=== PATIENT | male | born 1955 | race African-American/Black ===

== ENCOUNTER 2024-08-19 07:58 | Outpatient (CLI) | payer OTHER, SELFPAY ==
--- NOTE | 2024-08-19 08:00 | ECG_ITS ---
Test Date: 2024-08-19 08:29:04 Measurements Intervals [place] Rate: 67 P: 62 CA: 146 QRS: 52 QRSD: 89 T: 38 QT: 352 QTc: 374 Interpretive Statements SINUS RHYTHM VOLTAGE CRITERIA FOR LVH BORDERLINE T WAVE ABNORMALITY- INFERIOR LEADS BASELINE ARTIFACT- I, II, III, AVR, AVL, AVF, V1-V6 BORDERLINE ECG No previous ECG available for comparison Electronically Signed On 08-19-2024 08:55:58 CDT by Trevin Bell D.O.
[2024-08-19 08:58] LABS: Anion Gap 10 mmol/L (4-12); Blood Urea Nitrogen 15 mg/dL (9-20); Calcium 9.1 mg/dL (8.4-10.2); Carbon Dioxide 22 mmol/L (22-30); Chloride 108 mmol/L (98-107); Estimated Glomerular Filt Rate > 60; Glucose 128 mg/dL (65-110); Potassium 4.3 mmol/L (3.4-5.0); Sodium 140 mmol/L (137-145)
[2024-08-19 13:04] LABS: Hemoglobin A1C. 7.9 % (<5.7)
== END 2024-08-19 07:59 | disposition home or self-care (01) ==
LOC: ANHSURGERY 08:04
PROVIDERS: Anesthesiology; PCP Internal Medicine; Visit Provider Urology
DX: Z01.818 Encounter for other preprocedural examination (principal); N39.3 Stress incontinence (female) (male); E11.9 Type 2 diabetes mellitus without complications; I10 Essential (primary) hypertension
CPT/HCPCS: 36415; 80048; 83036; 87086; 93005

== ENCOUNTER 2024-08-24 00:06 | Day surgery (SDC) | payer OTHER, SELFPAY ==
[2024-08-16 11:02] VITALS: BMI 22.1
--- NOTE | 2024-08-16 11:27 | PC.NURSE ---
Report to the Outpatient Waiting Room, entrance under the green pavilion located off [facility], at time ___9:30AM____ on date ___08/24/24____. Planned Procedure Time: ___11:30AM .? Time changes happen often and if your time is changed the preop area will call you the afternoon before. - You and your visitor will be asked to self-screen and do not enter if you have any COVID symptoms. Please call surgeon if you need to reschedule. - A mask is optional within the hospital at this time. Patients may have clear liquids (water, carbonated beverages, clear teas, apple juice) until 3 hours prior to surgery (8:30AM) with a maximum of 20 ounces. - No food from midnight until time of surgery and no smoking, or chewing tobacco (or any form of nicotine). No chewing gum, candy or mints. or sippy cup to assist with drinking. Juice, water, soda, and popsicles are readily available.? For infants on formula, please bring formula the day of surgery.? Pacifiers are allowed. Take only the following medications with a SIP of water on the morning of surgery: AMLODIPINE & METOPROLOL DO NOT STOP ANY OF YOUR OTHER PRESCRIPTION MEDICATIONS PRIOR TO SURGERY EXCEPT THE FOLLOWING Hold all vitamins and supplements for 3 days per anesthesiologist. Medications to discontinue per physician HOLD ASPIRIN 7 DAYS PRE-OP PER DR CRISTINA Date to take last dose 08/16/24 Please no make-up, nail occitan, hairspray, perfume, deodorant, or body powder the day of surgery.? No jewelry (including any body piercings) or valuables the day of surgery, leave them at home.? Please take a shower or bath the night before, or the morning of, surgery with an antibacterial soap.? Wear comfortable, loose fitting clothing.? - Jewelry must be removed prior to entering the operating room.? Rings and piercings that are not removed may be cut off. - The hospital will not accept responsibility for valuables.? - Please leave all valuables, including medications, at home the day of surgery. If you are going home after surgery, a licensed route delivery service driver must drive you home.? - NO public transportation without another adult if you receive anesthesia. - We recommend that an adult stay with you for 24 hours following discharge. - We also recommend that you do not drive, make important decision, drink alcoholic beverages, or take any drugs that were not prescribed by your health care provider for at least 24 hours after your discharge time. Follow any additional instructions given to you from your surgeon. FOLLOW SURGICAL PREOPERATIVE INSTRUCTIONS AND ORAL ANTIBIOTICS PER DR CRISTINA CALL OFFICE WITH QUESTIONS* Telephone instructions given to ____PATIENT and asked if any additional questions and then verbalized understanding. Patient advised to call surgeon office or pre surgery nurse liaison [phone] if any additional questions.
[2024-08-24] VITALS (13 sets, daily range): BP systolic 165–193; BP diastolic 81–99; PULSE 60–80; RESP 11–18; TEMP 35.8–36.8; O2SAT 98–100; BMI 22.0
--- OUTSIDE RECORDS SUMMARY | 2024-08-24 00:09 | XMS_ITS | Encounter Summary ---
Author Organization [facility] Address [address] [place] [address] Care Team Providers Care Biochemistry Specialist Name Role Phone Yazan Chaves MD Primary Care Provider [phone] Encounter Details Date Type Department Care Team (Late st Contact Info) Description 03/08/1999 Outpatient Historical [facility] Medicine [facility] [address] [facility] 100 [place] [address] Yazan Chaves MD [address] [place] [address] [address] [place] [address] Social History Tobacco Use Types Packs/Day Years Used Date Smoking Tobacco: Never Assessed Sex and Gender Information Value Date Recorded Sex Assigned at Not on file Legal 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
--- OUTSIDE RECORDS SUMMARY | 2024-08-24 00:09 | XMS_ITS | Encounter Summary ---
Author Organization [facility] Address [address] [place] [address] Care Team Providers Care Job Developer For Deaf Adults Name Role Phone Yazan Chaves MD Primary Care Provider [phone] Encounter Details Date Type Department Care Team (Late st Contact Info) Description 12/29/2005 Outpatient Historical [facility] Medicine [facility] [address] [facility] 100 [place] [address] Yazan Chaves MD [address] [place] [address] [address] [place] [address] Social History Tobacco Use Types Packs/Day Years Used Date Smoking Tobacco: Never Assessed Sex and Gender Information Value Date Recorded Sex Assigned at Not on file Legal Sex Male 5:21 AM RN NEW GRAD Gender Identity Not on file Sexual Orientation Not on file documented as of this encounter Plan of Treatment Not on file documented as of this encounter Visit Diagnoses Not on filedocumented in this encounter Care Teams Job Developer For Deaf Adults Relationship Specialty Start Date End Date Yazan Chaves MD PCP - General 05/31/08 documented as of this encounter
--- OUTSIDE RECORDS SUMMARY | 2024-08-24 00:09 | XMS_ITS | Encounter Summary ---
Author Organization [facility] Address [address] [place] [address] Care Team Providers Care Candle Cutter Name Role Phone Yazan Chaves MD Primary Care Provider [phone] Encounter Details Date Type Department Care Team (Late st Contact Info) Description 07/30/2000 Outpatient Historical [facility] Medicine [facility] [address] [facility] 100 [place] [address] Yazan Chaves MD [address] [facility] [address] [place] [address] Social History Tobacco Use Types Packs/Day Years Used Date Smoking Tobacco: Never Assessed Sex and Gender Information Value Date Recorded Sex Assigned at Not on file 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
--- OUTSIDE RECORDS SUMMARY | 2024-08-24 00:09 | XMS_ITS | Clinical Summary ---
Author Organization [facility] Address [address] [place] [address] Care Team Providers Care Farm Agent Name Role Phone Elizabeth Stout Primary Care Provider [phone] Allergies No known active allergies Medications amLODIPine (NORVASC) 10 mg tablet 10 mg Active aspirin 81 mg enteric coated tablet 81 mg daily Active atorvastatin (LIPITOR) 20 mg tablet 20 mg daily Active dulaglutide (TRULICITY) 0.75 mg/0.5 mL pen injector Rx: Trulicity 0.75 MG/0.5ML Solution Pen-injector Active glimepiride (AMARYL) 1 mg tablet 1 mg Active lisinopril (PRINIVIL,ZESTR IL) 40 mg tablet 40 mg Active metFORMIN (GLUCOPHAGE) 1,000 mg tablet 1,000 mg Acti ve metoprolol XL (TOPROL-XL) 25 mg 24 hr tablet 25 mg daily Ac tive testosterone (ANDRODERM) 2 mg/[address] on the skin Active Active Problems Problem Noted Date Diagnosed Date Thyroid nodule 07/13/2015 Type 2 diabetes mellitus 04/13/2015 Nocturia 04/13/2015 Hypertension 04/13/2015 Type 2 diabetes mellitus with hyperglycemia 03/26 Hyperlipidemia 04/13/2015 Family History Medical History Relation Name Comments Diabetes type II Other Type 2 Diab etes Mellitus - (Added by TW Conv) Hypertension Other Hypertension - (Added by TW Conv) Relation Name Status Comments Other Social History Tobacco Use Types Packs/Day Years Used Date Smoking Tobacco: Never Personal Safety Answer Date Recorded Getting School Help Needed Not on file 04/22 Sex and Gender Information Value Date Recorded Sex Assigned at Not on file Legal Sex Male 11:42 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 COOK Gender Identity Not on file Sexual Orientation Not on file Obstetrics History Last Filed Vital Signs Vital Sign Reading Time Taken Comments Blood Pressure 146/70 12/11/2017 9:30 AM CDT Pulse 80 12/11/2017 9:30 AM CDT Temperature 36.3 C (97.4 F) 11/05/2017 11:04 AM CDT Respiratory Rate - - Oxygen Saturation 97% 11/05/2017 11:04 AM CDT Inhaled Oxygen Concentration - - Weight 73.9 kg (163 lb) 12/11/2017 9:30 AM CDT Height 170.2 cm (5' 7) 12/11/2017 9:30 AM CDT Body Mass Index 25.53 12/11/2017 9:30 AM CDT Plan of Treatment Health Maintenance Due Date Last Done Comments Albumin Creatinine Ratio, Urine 1956 Colon Cancer Screening-Colonoscopy 1956 Depression Screening 1956 Fall Risk Assessment 1956 Hemoglobin A1C 1956 Hepatitis C Screening 1956 Prostate Cancer Screening-PSA 1956 eGFR 1956 Dilated Eye Exam 1956 Foot Exam 1956 Lipid Panel 1956 Hepatitis B Screening 1974 Pneumococcal vaccine 65+ (2 of 2 - PPSV23) 06/09/2006 04/14/2006 Zoster Vaccine (1 of 2) 2006 DTaP/Tdap/Td Vaccine (3 - Td or Tdap) 04/25/2019 04/24/2009, 04/03/2008, 07/06/1997 Abdominal Aortic Aneurysm (A AA) Screen 2021 Well Visit 65+ 2021 Covid-19 Vaccine ( - season) 2023 01/09/2021, 04/25/2020, 04/04/2020 Influenza Vaccine (Season Ended) 2024 12/09/19 20 Insurance [facility] CHOICE PLUS [facility] CHOICE PLUS Care Teams Farm Agent Relationship Specialty Start Date End Date Elizabeth Stout DO PCP - General Internal Medicine 05/15/18
--- OUTSIDE RECORDS SUMMARY | 2024-08-24 00:09 | XMS_ITS | Encounter Summary ---
Author Organization [facility] Address [address] [place] [address] Care Team Providers Care Roundhouse Supervisor Name Role Phone Yazan Chaves MD Primary Care Provider [phone] Encounter Details Date Type Department Care Team (Late st Contact Info) Description 07/08/2002 Outpatient Historical [facility] Medicine 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
--- OUTSIDE RECORDS SUMMARY | 2024-08-24 00:09 | XMS_ITS | Encounter Summary ---
Author Organization [facility] Address [address] [place] [address] Care Team Providers Care Claims Support Specialist Name Role Phone Yazan Chaves MD Primary Care Provider [phone] Encounter Details Date Type Department Care Team (Late st Contact Info) Description 05/14/2006 Outpatient Historical [facility] Medicine [facility] [address] [facility] 100 [place] [address] Yazan Chaves MD [address] [facility] [address] [place] [address] Social History Tobacco Use Types Packs/Day Years Used Date Smoking Tobacco: Never Assessed Sex and Gender Information Value Date Recorded Sex Assigned at Not on file 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
--- OUTSIDE RECORDS SUMMARY | 2024-08-24 00:09 | XMS_ITS | Encounter Summary ---
Author Organization [facility] Address [address] [place] [address] Care Team Providers Care Bay Stocker Name Role Phone Yazan Chaves MD Primary Care Provider [phone] Encounter Details Date Type Department Care Team (Late st Contact Info) Description 08/18/2001 Outpatient Historical [facility] Medicine [facility] [address] [facility] 100 [place] [address] Yazan Chaves MD [address] [facility] [address] [place] [address] Social History Tobacco Use Types Packs/Day Years Used Date Smoking Tobacco: Never Assessed Sex and Gender Information Value Date Recorded Sex Assigned at Not on file Legal Sex Male 5:21 AM 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
--- OUTSIDE RECORDS SUMMARY | 2024-08-24 00:09 | XMS_ITS | Encounter Summary ---
Author Organization [facility] Address [address] [place] [address] Care Team Providers Care Head Of Merchandise Buying Name Role Phone Yazan Chaves MD Primary Care Provider [phone] Encounter Details Date Type Department Care Team (Late st Contact Info) Description 04/14/2006 Outpatient Historical [facility] Medicine [facility] [address] [facility] 100 [place] [address] Yazan Chaves MD [address] [place] [address] [address] [place] [address] Social History Tobacco Use Types Packs/Day Years Used Date Smoking Tobacco: Never Assessed Sex and Gender Information Value Date Recorded Sex Assigned at Not on file Legal 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
--- OUTSIDE RECORDS SUMMARY | 2024-08-24 00:09 | XMS_ITS | Encounter Summary ---
Author Organization [facility] Address [address] [place] [address] Care Team Providers Care Application Programmer Analyst Name Role Phone Yazan Chaves MD Primary Care Provider [phone] Encounter Details Date Type Department Care Team (Late st Contact Info) Description 11/14/1999 Outpatient Historical [facility] Medicine [facility] [address] [facility] [address] [place] [address] Yazan Chaves MD [address] [place] [address] [address] [place] [address] Social History Tobacco Use Types Packs/Day Years Used Date Smoking Tobacco: Never Assessed Sex and Gender Information Value Date Recorded Sex Assigned at Not on file Legal Sex Male 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
--- OUTSIDE RECORDS SUMMARY | 2024-08-24 00:09 | XMS_ITS | Encounter Summary ---
Author Organization [facility] Address [address] [place] [address] Care Team Providers Care Registered Nurse Nursery Name Role Phone Yazan Chaves MD Primary Care Provider [phone] Encounter Details Date Type Department Care Team (Late st Contact Info) Description 03/03/2005 Outpatient Historical [facility] Medicine [facility] [address] [facility] [address] [place] [address] Yazan Chaves MD [address] [place] [address] [address] [place] [address] Social History Tobacco Use Types Packs/Day Years Used Date Smoking Tobacco: Never Assessed Sex and Gender Information Value Date Recorded Sex Assigned at Not on file Legal Sex Male 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
--- OUTSIDE RECORDS SUMMARY | 2024-08-24 00:09 | XMS_ITS | Encounter Summary ---
Author Organization [facility] Address [address] [place] [address] Care Team Providers Care Bulbs Farmworker Name Role Phone Yazan Chaves MD Primary Care Provider [phone] Encounter Details Date Type Department Care Team (Late st Contact Info) Description 08/23/1998 Outpatient Historical [facility] [address] [facility] [address] [place] [address] Sarina Ku Social History Tobacco Use Types Packs/Day Years Used Date Smoking Tobacco: Never Assessed Sex and Gender Information Value Date Recorded Sex Assigned at Not on file Legal Sex Male 5:21 AM PROCEDURES RN Gender Identity Not on file Sexual Orientation Not on file documented as of this encounter Plan of Treatment Not on file documented as of this encounter Visit Diagnoses Not on filedocumented in this encounter Care Teams Bulbs Farmworker Relationship Specialty Start Date End Date Yazan Chaves MD PCP - General 05/31/08 documented as of this encounter
--- OUTSIDE RECORDS SUMMARY | 2024-08-24 00:09 | XMS_ITS | Encounter Summary ---
Author Organization [facility] Care Team Providers Care Moid Middle School Teacher Name Role Phone Elizabeth Stout DO Primary Care Provider [phone] Encounter Details Date Type Department Care Team (Latest Contact Info) Description 07/30/2017 Orders Only [facility]INCON[facility] ProviderHarris MD [address] [place] [address] Social History Tobacco Use Types Packs/Day Years Used Date Smoking Tobacco: Never Sex and Gender Information Value Date Recorded Sex Assigned at Not on file Legal Sex Male 11:42 AM RETAIL SPECIAL EVENT ASSOCIATE Gender Identity Not on file Sexual Orientation Not on file documented as of this encounter Plan of Treatment Not on file documented as of this encounter Procedures Procedure Name Priority Date/Time Associated Diagnosis Comments CARDIOLOGY REPORT 07/30/2017 12: 00 AM CDT documented in this encounter Results * CARDIOLOGY REPORT (07/30/2017 12:00 AM CDT) Anatomical Region Laterality Modality Other Narrative 07/30/2017 12:00 AM CDT Ordered by an unspecified provider. us Historical Provider [facility] ASCENCION DRAPER Final Result documented in this encounter Visit Diagnoses Not on filedocumented in this encounter Care Teams [employer] Teacher Relationship Specialty Start Date End Date Elizabeth Stout DO PCP - General Internal Medicine 05/15/18 documented as of this encounter
--- OUTSIDE RECORDS SUMMARY | 2024-08-24 00:09 | XMS_ITS | Encounter Summary ---
Author Organization [facility] Address 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
--- OUTSIDE RECORDS SUMMARY | 2024-08-24 00:09 | XMS_ITS | Encounter Summary ---
Author Organization [facility] Address [address] [place] [address] Care Team Providers Care Ballistic Technician Name Role Phone Yazan Chaves MD Primary Care Provider [phone] Encounter Details Date Type Department Care Team (Late st Contact Info) Description 01/31/2005 Outpatient Historical [facility] Medicine [facility] [address] [facility] 100 [place] [address] Yazan Chaves MD [address] [place] [address] [address] [place] [address] Social History Tobacco Use Types Packs/Day Years Used Date Smoking Tobacco: Never Assessed Sex and Gender Information Value Date Recorded Sex Assigned at Not on file Legal Sex Male 5:21 AM STUNNER ANIMAL Gender Identity Not on file Sexual Orientation Not on file documented as of this encounter Plan of Treatment Not on file documented as of this encounter Visit Diagnoses Not on filedocumented in this encounter Care Teams Ballistic Technician Relationship Specialty Start Date End Date Yazan Chaves MD PCP - General 05/31/08 documented as of this encounter
--- OUTSIDE RECORDS SUMMARY | 2024-08-24 00:09 | XMS_ITS | Encounter Summary ---
Author Organization [facility] Address [address] [place] [address] Care Team Providers Care Clinical Rehabilitation Aide Name Role Phone Yazan Chaves MD Primary Care Provider [phone] Encounter Details Date Type Department Care Team (Late st Contact Info) Description 01/29/1999 Outpatient Historical [facility] Medicine [facility] [address] [facility] [address] [place] [address] Yazan Chaves MD [address] [facility] [address] [place] [address] Social History Tobacco Use Types Packs/Day Years Used Date Smoking Tobacco: Never Assessed Sex and Gender Information Value Date Recorded Sex Assigned at Not on file Legal Sex Male 5:21 AM INTERNET SALES 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
--- OUTSIDE RECORDS SUMMARY | 2024-08-24 00:09 | XMS_ITS | Encounter Summary ---
Author Organization [facility] Address [address] [place] [address] Care Team Providers Care Invoicing Machine Operator Name Role Phone Yazan Chaves MD Primary Care Provider [phone] Encounter Details Date Type Department Care Team (Late st Contact Info) Description 06/12/2005 Outpatient Historical [facility] Medicine [facility] [address] [facility] [address] [place] [address] Yazan Chaves MD [address] [place] [address] [address] [place] [address] Social History Tobacco Use Types Packs/Day Years Used Date Smoking Tobacco: Never Assessed Sex and Gender Information Value Date Recorded Sex Assigned at Not on file Legal Sex Male 5:21 AM RAMP MANAGER Gender Identity Not on file Sexual Orientation Not on file documented as of this encounter Plan of Treatment Not on file documented as of this encounter Visit Diagnoses Not on filedocumented in this encounter Care Teams Invoicing Machine Operator Relationship Specialty Start Date End Date Yazan Chaves MD PCP - General 05/31/08 documented as of this encounter
--- OUTSIDE RECORDS SUMMARY | 2024-08-24 00:09 | XMS_ITS | Clinical Summary ---
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 Gender Identity Not on file Sexual Orientation Not on file Plan of Treatment Health Maintenance Due Date Last Done Comments Hepatitis C Virus (HCV) Screening 1955 Colonoscopy 2001 Colorectal Cancer Screening 2001 Cologuard 2006 Immunochemical Fecal Occult Blood 2006 Pneumococcal Immunization (5 0+ years) (1 of 1 - PCV) 2006 04/14/2006 Zoster Immunization (1 of 2) 2006 PSA Discussion 12/25/2011 SARS-COV-2 Immunization ( season) 2023 01/09/2021, 04/25/2020, 04/04/2020 Influenza Immunization (Seas on Ended) 2024 12/09/2019 Respiratory Syncytial Virus (RSV) Immunization (Adult) (1 - 1-dose 75+ series) 12/25/2031 Pneumococcal Immunization Combined Discontinued 04/14/2006 TdaP Immunization Completed 04/03/2008 DTaP/Tdap/Td Immunization Discontinued 2009, 04/03/2008, 07/06/1997 Hepatitis B Immunization Aged Out No longer eligible based on patient's age to complete this topic Human Papillomavirus (HPV) Immunization Aged Out No longer eligible based on patient's age to complete this topic Meningococcal Immunization (ACWY) Aged Out No longer eligible based on patient's age to complete this topic Rotavirus Immunization Aged Out No lo nger eligible based on patient's age to complete this topic Insurance [facility] Care Teams Carpenter Mold Relationship Specialty Start Date End Date Provider, None [place] PCP - General 02/20/23
--- OUTSIDE RECORDS SUMMARY | 2024-08-24 00:09 | XMS_ITS | Encounter Summary ---
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 us Historical Provider [facility] ASCENCION DRAPER Final Result documented in this encounter Visit Diagnoses Not on filedocumented in this encounter Care Teams Underwater Roboticist Relationship Specialty Start Date End Date Elizabeth Stout DO PCP - General Internal Medicine 05/15/18 documented as of this encounter
--- OUTSIDE RECORDS SUMMARY | 2024-08-24 00:09 | XMS_ITS | Encounter Summary ---
Author Organization [facility] Address [address] [place] [address] Care Team Providers Care Technician Test Systems Name Role Phone Yazan Chaves MD Primary Care Provider [phone] Encounter Details Date Type Department Care Team (Late st Contact Info) Description 11/24/2005 Outpatient Historical [facility] Medicine - [facility] [address] [facility] [address] [place] [address] Yazan Chaves MD [address] [place] [address] [address] [place] [address] Social History Tobacco Use Types Packs/Day Years Used Date Smoking Tobacco: Never Assessed Sex and Gender Information Value Date Recorded Sex Assigned at Not on file 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
--- OUTSIDE RECORDS SUMMARY | 2024-08-24 00:09 | XMS_ITS | Encounter Summary ---
Author Organization [facility] Address [address] [place] [address] Care Team Providers Care Major Case Detective Name Role Phone Yazan Chaves MD Primary Care Provider [phone] Encounter Details Date Type Department Care Team (Late st Contact Info) Description 11/10/2005 Outpatient Historical [facility] Medicine [facility] [address] [facility] 100 [place] [address] Yazan Chaves MD [address] [place] [address] [address] [place] [address] Social History Tobacco Use Types Packs/Day Years Used Date Smoking Tobacco: Never Assessed Sex and Gender Information Value Date Recorded Sex Assigned at Not on file 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
--- OUTSIDE RECORDS SUMMARY | 2024-08-24 00:09 | XMS_ITS | Encounter Summary ---
Author Organization [facility] Address [address] [place] [address] Care Team Providers Care Field Account Director Name Role Phone Yazan Chaves MD Primary Care Provider [phone] Encounter Details Date Type Department Care Team (Late st Contact Info) Description 03/06/2000 Outpatient Historical [facility] Medicine [facility] [address] [facility] [address] [place] [address] Yazan Chaves MD [address] [place] [address] [address] [place] [address] Social History Tobacco Use Types Packs/Day Years Used Date Smoking Tobacco: Never Assessed Sex and Gender Information Value Date Recorded Sex Assigned at Not on file 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
--- OUTSIDE RECORDS SUMMARY | 2024-08-24 00:09 | XMS_ITS | Clinical Summary ---
Author Organization [facility] Address [facility] [place] [address] Care Team Providers Care Permanent Mold Supervisor Name Role Phone Elizabeth Stout Primary Care Provider [phone] Allergies No known active allergies Medications Canagliflozin-m etFORMIN HCl (INVOKAMET) 150-1000 MG Tab Take 1 tablet by mouth 2 (two) times a day. Active AMLODIPINE BENZOATE OR Take 10 mg by mouth daily. Active metoprolol tartrate 25 MG tablet Take 25 mg by mouth 2 (two) times daily. Active lisinopril 40 MG tablet Take 40 mg by mouth daily. Active atorvastatin 40 MG tablet Take 40 mg by mouth nightly at bedtime. Active Multiple Vitamin (MULTIVITAMIN ADULT OR) Take 1 tablet by mouth daily. Active aspirin EC (ASPIRIN EC) 81 MG tablet Take 81 mg by mouth daily. Active Dulaglutide (TRULICITY) 1.5 MG/0.5ML Solution Pen-injector Inject 1 Dose into the skin weekly. 02/18/2021 Active VYZULTA 0.024 % Solution Place 1 drop in ear(s) daily. 02/21/2021 Active ondansetron 4 MG tablet Take 4 mg by mouth every 6 (six) hours as needed. 02/19/2021 Active Active Problems Problem Noted Date Diagnosed Date Prostate cancer ([facility]) 03/15/2021 Family History Medical History Relation Comments Cancer Brother 5 Hypertension Brother 5 Diabetes Brother 6 Heart Brother 6 Hypertension Brother 6 Diabetes Father Hypertension Father Diabetes Mother Hypertension Mother Diabetes Sister 1 Hyperlipidemia Sister 1 Hypertension Sister 1 Diabetes Sister 2 Heart Sister 2 dialysis Sister 2 Relation Status Comments Brother 1 Brother 2 Brother 3 Brother 4 Brother 5 Alive Brother 6 Alive Father Mother Sister 1 Alive Sister 2 Social History Tobacco Use Types Packs/Day Years Used Date Smoking Tobacco: Never Smokeless Tobacco: Never Alcohol Use Standard Drinks/Week Comments Not Currently 0 (1 standard drink = 0.6 oz pur e alcohol) Sex and Gender Information Value Date Recorded Sex Assigned at Not on file Legal Sex Male 4:42 PM CDT Gender Identity Not on file Sexual Orientation Not on file Last Filed Vital Signs Vital Sign Reading Time Taken Comments Blood Pressure 137/75 03/16/2021 1:54 PM NATURAL SCIENCE MANAGER Pulse 84 03/16/2021 1:54 PM NATURAL SCIENCE MANAGER Temperature 36.9 C (98.4 F) 03/16/2021 4:05 AM NATURAL SCIENCE MANAGER Respiratory Rate 19 03/16/2021 12:10 PM NATURAL SCIENCE MANAGER Oxygen Saturation 99% 03/16/2021 1:54 PM NATURAL SCIENCE MANAGER Inhaled Oxygen Concentration - - Weight 72.3 kg (159 lb 6.3 oz) 03/16/2021 5:00 A M NATURAL SCIENCE MANAGER Height 170.2 cm (5' 7) 03/15/2021 11:12 AM NATURAL SCIENCE MANAGER Body Mass Index 24.96 03/15/2021 11:12 AM NATURAL SCIENCE MANAGER Plan of Treatment Health Maintenance Due Date Last Done Comments Colorectal Cancer Screening Colonoscopy (10 Years) 1956 Hepatitis C 1974 Pneumococcal Vaccine: 50+ Years (1 of 1 - PCV) 2006 Zoster Vaccines (1 of 2) 2006 DTaP, Tdap and Td Vaccines ( 3 - Td or Tdap) 04/25/2019 04/24/2009, 04/03/2008, 07/06/1997 COVID-19 Vaccine (4 - 2023-2 5 season) 2023 01/09/2021, 04/25/2020, 04/04/2020 RSV Immunization or 60+ Years (1 - 1-dose 75+ series) 12/25/2031 Meningococcal B Vaccine Aged Out No l onger eligible based on patient's age to complete this topic Meningococcal Vaccine Aged Out No blair anthony eligible based on patient's age to complete this topic RSV Immunizations Under 20 Months Aged Out No longer eligible b ased on patient's age to complete this topic Goals Goal Patient Goal Type Associated Problems Recent Progress Patient-Stated? Author Patient will return to prior living situation and remain independent in ADLs upon discharge from hospital General No Terri Maynard, RN Insurance [facility] Advance Directives * Full Code (Latest Code Status on File) Date Activated Date Inactivated Comments 03/15/2021 6:24 PM 03/16/2021 9:40 PM Care Teams Permanent Mold Supervisor Relationship Specialty Start Date End Date Elizabeth Stout DO PCP - General INTERNAL MEDICINE 03/12/21
--- OUTSIDE RECORDS SUMMARY | 2024-08-24 00:09 | XMS_ITS | Encounter Summary ---
Author Organization [facility] Address [address] [place] [address] Care Team Providers Care Asset Liability Analyst Name Role Phone Yazan Chaves MD Primary Care Provider [phone] Encounter Details Date Type Department Care Team (Late st Contact Info) Description 2001 Outpatient Historical [facility] Medicine [facility] [address] [facility] 100 [place] [address] Yazan Chaevs MD [address] [facility] [address] [place] [address] Social History Tobacco Use Types Packs/Day Years Used Date Smoking Tobacco: Never Assessed Sex and Gender Information Value Date Recorded Sex Assigned at Not on file 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
--- OUTSIDE RECORDS SUMMARY | 2024-08-24 00:09 | XMS_ITS | Encounter Summary ---
Author Organization [facility] Address [address] [place] [address] Care Team Providers Care Building Economist Name Role Phone Yazan Chaves MD Primary Care Provider [phone] Encounter Details Date Type Department Care Team (Late st Contact Info) Description 02/11/1999 Outpatient Historical [facility] Medicine - [facility] [address] 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
--- OUTSIDE RECORDS SUMMARY | 2024-08-24 00:09 | XMS_ITS | Clinical Summary ---
Author Organization [facility] Address [address] [place] [address] Care Team Providers Care Dictating Transcribing Machine Servicer Name Role Phone Yazan Chaves MD Primary Care Provider [phone] Allergies No known active allergies Medications ASPIRIN 81 mg Oral Tab Take 1 Tab by mouth daily. Active lancets Misc MiscIndications: Type II or unspecified type diabetes mellitus without mention of complication, uncontrolled by Misc.(Non-Drug; Combo Route) route 3 times daily before meals. 100 Each 12 1 Active blood sugar diagnostic (BLOOD GLUCOSE TEST) Misc StrpIndications: Type II or unspecified type diabetes mellitus without mention of complication, uncontrolled 1 Strip by See Admin Instructions route 2 times daily. Diagnosis: DM not controlled, HTN, and hyperlipidemia. 60 Strip 12 3 Active Insulin [place], Disposable, (NOVOFINE 32) 32 x 1/4 NeedleIndication s:Type II or unspecified type diabetes mellitus without mention of complication, uncontrolled Inject insulin daily 100 Each 3 4 Active insulin detemir (LEVEMIR FLEXPEN) 100 unit/mL Insulin PenIndications:T ype II or unspecified type diabetes mellitus without mention of complication, uncontrolled Inject 20 Units by subcutaneous injection 2 times daily. 15 mL 3 4 Active lisinopril (PRINIVIL) 40 mg tablet TAKE 1 TABLET BY MOUTH TWICE DAILY 180 Tab 0 5 Active testosterone (ANDRODERM) 4 mg/24 hr patch Apply 1 Patch to skin as directed daily. 30 Patch 1 5 Active amLODIPine (NORVASC) 10 mg tablet TAKE 1 TABLET BY MOUTH EVERY DAY 90 Tab 3 5 Active atorvastatin (LIPITOR) 40 mg tablet TAKE 1 TABLET BY MOUTH EVERY DAY 30 Tablet 0 5 Active atorvastatin (LIPITOR) 40 mg tablet TAKE 1 TABLET BY MOUTH EVERY DAY 30 Tablet 3 5 Active JANUMET 50-1,000 mg tablet TAKE 1 TABLET BY MOUTH TWICE DAILY WITH MEALS 60 Tablet 3 5 Active VIAGRA 100 mg tablet TAKE 1 TABLET BY MOUTH EVERY DAY NEEDED 5 Tablet 3 6 Active HYDROCHLOROTHIAZ NELLIE 25 mg tablet TAKE 1 TABLET BY MOUTH DAILY 30 Tablet 7 Active Active Problems Problem Noted Date Diagnosed Date Erectile dysfunction 07/22/2008 GERD (gastroesophageal reflux disease) HTN (hypertension) Type II or unspecified type diabetes mellitus without mention of complication, uncontrolled Hyperlipidemia Hypertrophy of prostate with urinary obstruction and other lower urinary tract symptoms (LUTS) Hypogonadism, male Immunizations Immunization Administration Dates Next Due (ADACEL/BOOSTRIX)(10 YR UP) TDAP VACCINE, 0.5ML, IM 04/03/2008 (TDVAX)(7 YRS UP) TETANUS AN D DIPHTHERIA TOXOIDS, ADSORBED (2 LF OF TETANUS TOXOID AND 2 LF OF DIPHTHERIA TOXOID), 0.5ML (PF), IM 07/06/1997 Pneumococcal conjugate, unspecified formulation 04/14/2006 Family History Medical History Relation Name Comments Heart Disease Brother 1 brother 1 Diabetes Brother 2 brother 2 Heart Disease Brother 2 brother 2 Healthy Brother 3 brother 3 Lung Cancer Brother 3 brother 3 Healthy Brother 4 Heart Disease Father Hypertension Father Diabetes Mother Heart Disease Mother Hypertension Mother Lung Cancer Mother Diabetes Sister 1 Heart Disease Sister 1 High Cholesterol Sister 1 Hypertension Sister 1 Kidney Disease Sister 1 Hemodialysis Diabetes Sister 2 Healthy Sister 2 Relation Name Status Comments Brother 1 brother 1 CHF Brother 2 brother 2 DM Brother 3 brother 3 Alive Brother 4 Alive Daughter Alive Father CHF Maternal Grandfather Maternal Grandmother Mother DM Paternal Grandfather Paternal Grandmother Sister 1 Alive Sister 2 Alive Son Alive Social History Tobacco Use Types Packs/Day Years Used Date Smoking Tobacco: Never Smokeless Tobacco: Never Alcohol Use Standard Drinks/Week Comments No 0 (1 standard drink = 0.6 oz pur e alcohol) Sex and Gender Information Value Date Recorded Sex Assigned at Not on file 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 Gender Identity Not on file Sexual Orientation Not on file Occupation Industry Job Start Date Job End Date Not on file Not on file Not on file Not on file Last Filed Vital Signs Vital Sign Reading Time Taken Comments Blood Pressure 120/72 05/18/2014 10:08 AM CDT Pulse 78 05/18/2014 10:08 AM CDT Temperature 36.6 C (97.9 F) 05/18/2014 10:08 AM CDT Respiratory Rate 16 05/18/2014 10:08 AM CDT Oxygen Saturation - - Inhaled Oxygen Concentration - - Weight 72.6 kg (160 lb) 05/18/2014 10:08 AM CDT Height 170.2 cm (5' 7) 05/18/2014 10:08 AM CDT Body Mass Index 25.06 05/18/2014 10:08 AM CDT Plan of Treatment Health Maintenance Due Date Last Done Comments FIT-DNA Q 3 years 2001 Flex Sig/CT Colonography Q 5 years 2001 PNEUMOCOCCAL VACCINE 50+ YEA RS (1 of 1 - PCV) 2006 04/14/2006 ZOSTER VACCINE (1 of 2) 2006 FIT/FOBT Q 1 year 05/31/2014 05/31/2013, , 10/10/2010, Additional history exists DTAP/TDAP/TD VACCINES (2 - T d or Tdap) 04/03/2018 04/03/2008, 07/06/1997 COLORECTAL SCREENING 11/05/2021 11/06/2011, 10/10/2010, 07/21/2008, Additional history exists Colorectal Cancer Screening 11/05/2021 INFLUENZA VACCINE (#1) 2023 RSV VACCINE (60+ or ) (1 - 1-dose 75+ series) 12/25/2031 Procedures Procedure Name Priority Date/Time Associated Diagnosis Comments POC OCCULT BLOOD 1 CARD Routine 05/31/2013 11:48 AM CDT Screening for colon cancer from Last 3 Months or Most Recently Relevant to Health Maintenance Results * POC OCCULT BLOOD 1 CARD (05/31/2013 11:48 AM CDT) OCCULT BLOOD #1 Negative Negative [facility] Stool specimen (specimen) 05/31/2013 11:48 AM CDT Yazan Chaves MD POINT OF CARE TESTING Final Result [facility] from Last 3 Months or Most Recently Relevant to Health Maintenance Insurance Care Teams Dictating Transcribing Machine Servicer Relationship Specialty Start Date End Date Yazan Chaves MD PCP - General 05/31/08
--- OUTSIDE RECORDS SUMMARY | 2024-08-24 00:09 | XMS_ITS | Encounter Summary ---
Author Organization [facility] Address 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
--- OUTSIDE RECORDS SUMMARY | 2024-08-24 00:09 | XMS_ITS | Encounter Summary ---
Author Organization [facility] Address [address] [place] [address] Care Team Providers Care Staff Anesthetist Name Role Phone Yazan Chaves MD Primary Care Provider [phone] Encounter Details Date Type Department Care Team (Late st Contact Info) Description 06/09/2002 Outpatient Historical [facility] Medicine [facility] [address] [facility] [address] [place] [address] Yazan Chaves MD [address] [facility] [address] [place] [address] Social History Tobacco Use Types Packs/Day Years Used Date Smoking Tobacco: Never Assessed Sex and Gender Information Value Date Recorded Sex Assigned at Not on file 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
--- OUTSIDE RECORDS SUMMARY | 2024-08-24 00:09 | XMS_ITS | Encounter Summary ---
Author Organization [facility] Address [address] [place] [address] Care Team Providers Care Paper Conservator Name Role Phone Yazan Chaves MD Primary Care Provider [phone] Encounter Details Date Type Department Care Team (Late st Contact Info) Description 07/10/2005 Outpatient Historical [facility] Medicine [facility] [address] [facility] [address] [place] [address] Yazan Chaves MD [address] [place] [address] [address] [place] [address] Social History Tobacco Use Types Packs/Day Years Used Date Smoking Tobacco: Never Assessed Sex and Gender Information Value Date Recorded Sex Assigned at Not on file 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
--- OUTSIDE RECORDS SUMMARY | 2024-08-24 00:09 | XMS_ITS | Encounter Summary ---
Author Organization [facility] Address [address] [place] [address] Care Team Providers Care Garage Attendant Name Role Phone Elizabeth Stout Primary Care Provider [phone] Encounter Details Date Type Department Care Team (Late st Contact Info) Description 03/15/2021 Prep for Procedure [facility] Pre-Admission Testing [address] [place], [place] [id number] Alvaro Day MD [address] [place], [place] [id number] Social History Tobacco Use Types Packs/Day Years Used Date Smoking Tobacco: Never Smokeless Tobacco: Never Alcohol Use Standard Drinks/Week Comments Not Currently 0 (1 standard drink = 0.6 oz pur e alcohol) Sex and Gender Information Value Date Recorded Sex Assigned at Not on file Legal Sex Male 4:42 PM CDT Gender Identity Not on file Sexual Orientation Not on file COVID-19 Exposure Response Date Recorded In the last month, have you been in contact with someone who was confirmed or suspected to have Coronavirus / COVID-19? No / Unsure 03/15/2021 10:28 AM LEAD MACHINIST documented as of this encounter Functional Status * Calculated C-SSRS Risk Score (Lifetime/Recent) Answer Date of Assessment Author Status No Risk Indicated 03/15/2021 11:15 AM Yasmeen Leslie RN Active * [place] Suicide Severity Rating Scale (Screener/Recent Self-Report) Question Answer Date of Assessment Author Status 1. Wish to be (Past 1 Month) No 03/15/2021 11:15 AM Yasmeen Leslie RN Active 2. Non-Specific Active Suicidal Thoughts (Past 1 Month) No 03/15/2021 11:15 AM Yasmeen Leslie RN Active 6. Suicidal Behavior (Lifetime) No 03/15/2021 11:15 AM Yasmeen Leslie RN Active documented as of this encounter Plan of Treatment Not on file documented as of this encounter Goals Goal Patient Goal Type Associated Problems Recent Progress Patient-Stated? Author Patient will return to prior living situation and remain independent in ADLs upon discharge from hospital General No Terri Maynard RN documented as of this encounter Results * CBC W/DIFF AUTOMATED (03/13/2021 1:25 PM LEAD MACHINIST) WBC 5.5 4.5 - 11.0 x10'3/uL 03/13/2021 9:25 PM [facility] RBC 5.02 4.70 - 6.10 x10'6/uL 03/13/2021 9:25 PM [facility] HGB 14.5 14.0 - 18.0 G/DL 03/13/2021 9:25 PM [facility] HCT 44.4 43.0 - 54.0 % 03/13/2021 9:25 PM [facility] MCV 88.4 80.0 - 94.0 FL 03/13/2021 9:25 PM [facility] MCH 28.9 27.0 - 31.0 PG 03/13/2021 9:25 PM [facility] MCHC 32.7 32.0 - 36.0 G/DL 03/13/2021 9:25 PM [facility] RDW 13.6 11.5 - 14.5 % 03/13/2021 9:25 PM [facility] PLT 251 130 - 400 x10'3/uL 03/13/2021 9:25 PM [facility] MPV 10.4 9.3 - 12.2 FL 03/13/2021 9:25 PM [facility] DIFFERENTIAL TYPE AUTOMATED DIFFERENTIAL 03/13/2021 9:25 PM [facility] NEUTROPHILS % 60.3 % 03/13/2021 9:25 PM [facility] LYMPHOCYTES % 24.5 % 03/13/2021 9:25 PM [facility] MONOCYTES % 11.5 % 03/13/2021 9:25 PM [facility] EOSINOPHILS 2.6 % 03/13/2021 9:25 PM [facility] BASOPHILS 0.7 % 03/13/2021 9:25 PM [facility] IMMATURE GRANS % 0.4 % 03/13/19 9:25 PM [facility] ABS. NEUTROPHILS TOTAL 3.31 1.80 - 7.70 x10'3/uL 03/13/2021 9:25 PM [facility] ABS. LYMPHOCYTES 1.34 1.00 - 4.80 x10'3/uL 03/13/2021 9:25 PM [facility] ABS. MONOCYTES 0.63 0.30 - 0.82 x10'3/uL 03/13/2021 9:25 PM [facility] ABS. EOSINOPHILS 0.14 0.04 - 0.54 x10'3/uL 03/13/2021 9:25 PM [facility] ABS. BASOPHILS 0.04 0.01 - 0.08 x10'3/uL 03/13/2021 9:25 PM [facility] ABS. IMMATURE GRANULOCYTES 0.02 0.00 - 0.49 x10'3/uL 03/13/2021 9:25 PM [facility] 03/13/2021 1:25 PM LEAD MACHINIST Alvaro Day MD LABORATORY Raina l Result [facility] [address] [place] [address], [place] [phone] * (ABNORMAL) BASIC METABOLIC PANEL (03/13/2021 1:23 PM LEAD MACHINIST) [facility] GLUCOSE 116(H) 70 - 99 MG/DL 03/13/2021 2:15 PM LEAD MACHINIST [facility] BUN 11 7 - 18 MG/DL 03/13/2021 2:15 PM LEAD MACHINIST [facility] CREATININE S/P/B 0.90 0.7 - 1.3 MG/DL 03/13/2021 2:15 PM LEAD MACHINIST [facility] SODIUM S/P/B 139 136 - 145 MMOL/L 03/13/2021 2:15 PM LEAD MACHINIST [facility] POTASSIUM S/P/B 4.0 3.5 - 5.1 MMOL/L 03/13/2021 2:15 PM LEAD MACHINIST [facility] CHLORIDE S/P/B 109(H) 100 - 108 MMOL/L 03/13/2021 2:15 PM LEAD MACHINIST [facility] CO2 28.1 21 - 32 MMOL/L 03/13/2021 2:15 PM LEAD MACHINIST [facility] CALCIUM S/P/B 9.1 8.5 - 10.1 MG/DL 03/13/2021 2:15 PM LEAD MACHINIST [facility] ANION GAP 1.9(L) 5 - 15 MMOL/L 03/13/2021 2:15 PM LEAD MACHINIST [facility] BUN CREATININE RATIO 12.3 6 - 26 03/13/2021 2:15 PM LEAD MACHINIST [facility] EGFR NON-AFR. AMER. 90(L) >90 ML/MIN/1.7 3 M2 03/13/2021 2:15 PM LEAD MACHINIST [facility] EGFR AFR. AMER. >90 >90 ML/MIN/1.7 3 M2 03/13/2021 2:15 PM LEAD MACHINIST [facility] Comment: NOTE: eGFR is not calculated for patients <18 years of age. This is an estimated GFR (CKD EPI) and should not be used for calculating drug doses. 03/13/2021 1:23 PM LEAD MACHINIST Alvaro Day MD LABORATORY Rania l Result Performing Organization Address City/[facility] Co de Phone Number [facility] [address] [place] [address], [place] [phone] * PROTIME/INR, VENOUS (03/13/2021 1:23 PM LEAD MACHINIST) PROTIME 12.2 10.2 - 12.9 SEC 03/13/2021 2:19 PM LEAD MACHINIST [facility] INR 1.0 03/13/2021 2:19 PM LEAD MACHINIST [facility] Comment: Recommended INR Therapeutic Goals: 2.0-3.0 Routine Therapy 2.5-3.5 Mechanical Prosthetic Valves (High Risk) 03/13/2021 1:23 PM LEAD MACHINIST Alvaro Day MD LABORATORY Raina l Result Performing Organization Address City/[facility]/ZIP Co de Phone Number [facility] [address] [place] [address], [place] [phone] * PTT, PARTIAL THROMBOPLASTIN TIME (03/13/2021 1:23 PM LEAD MACHINIST) PTT 33.9 25.1 - 36.5 SEC 03/13/2021 2:19 PM LEAD MACHINIST [facility] 03/13/2021 1:23 PM LEAD MACHINIST Alvaro Day MD LABORATORY Raina l Result Performing Organization Address [facility] Co de Phone Number [facility] [address] [place] [address], [place] [phone] * TYPE & SCREEN (03/13/2021 1:23 PM LEAD MACHINIST) ABO/RH O POSITIVE 03/13/2021 3:06 PM LEAD MACHINIST [facility] ANTIBODY SCREEN NEGATIVE 03/13/2021 3:06 PM LEAD MACHINIST [facility] SAMPLE EXPIRATION 03/18/2021,2 359 03/15/2021 12:25 PM LEAD MACHINIST [facility] COMMENT NO HISTORY OF TRANSFUSIONS , OR ANTIBODIES, NEW SPECIMEN NOT NEEDED 03/15/2021 12:25 PM LEAD MACHINIST [facility] 03/13/2021 1:23 PM LEAD MACHINIST Alvaro Day MD BLOOD BANK TEST ORDE RABLES Final Result Performing Organization Address [facility] de Phone Number [facility] [address] [place] [address], [place] [phone] documented in this encounter Visit Diagnoses Diagnosis Preoperative testing- Primary Preoperative examination, unspecified documented in this encounter Care Teams Garage Attendant Relationship Specialty Start Date End Date Elizabeth Stout DO PCP - General INTERNAL MEDICINE 03/12/21 documented as of this encounter
--- OUTSIDE RECORDS SUMMARY | 2024-08-24 00:09 | XMS_ITS | Encounter Summary ---
Author Organization [facility] Facility Care Team Providers Care Financial Internship Name Role Phone Elizabeth Stout DO Primary Care Provider [phone] Encounter Details Date Type Department Care Team (Latest Contact Info) Description 08/05/2017 Orders Only [facility] CLINCONV ProviderHarris MD [address] [place] [address] Social History Tobacco Use Types Packs/Day Years Used Date Smoking Tobacco: Never Sex and Gender Information Value Date Recorded Sex Assigned at Not on file Legal Sex Male 11:42 AM LEAD SOLUTIONS ARCHITECT Gender Identity Not on file Sexual Orientation Not on file documented as of this encounter Plan of Treatment Not on file documented as of this encounter Procedures Procedure Name Priority Date/Time Associated Diagnosis Comments CARDIOLOGY REPORT 08/11/2017 12: 00 AM CDT documented in this encounter Results * CARDIOLOGY REPORT (08/11/2017 12:00 AM CDT) Anatomical Region Laterality Modality Other Narrative 08/11/2017 12:00 AM CDT Ordered by an unspecified provider. us Historical Provider [facility] CARDIAC SERVICES ASCENCION DRAPER Final Result documented in this encounter Visit Diagnoses Not on filedocumented in this encounter Care Teams Financial Internship Relationship Specialty Start Date End Date Elizabeth Stout DO PCP - General Internal Medicine 05/15/18 documented as of this encounter
--- OUTSIDE RECORDS SUMMARY | 2024-08-24 00:09 | XMS_ITS | Encounter Summary ---
Author Organization [facility] Address [address] [place] [address] Care Team Providers Care Rapid Transit Operator Name Role Phone Yazan Chaves MD Primary Care Provider [phone] Encounter Details Date Type Department Care Team (Late st Contact Info) Description 02/26/2006 Outpatient Historical [facility] Medicine [facility] [address] [facility] 100 [place] [address] Yazan Chaves MD [address] [place] [address] [address] [place] [address] Social History Tobacco Use Types Packs/Day Years Used Date Smoking Tobacco: Never Assessed Sex and Gender Information Value Date Recorded Sex Assigned at Not on file Legal Sex Male 5:21 AM BATCH TRUCKER Gender Identity Not on file Sexual Orientation Not on file documented as of this encounter Plan of Treatment Not on file documented as of this encounter Visit Diagnoses Not on filedocumented in this encounter Care Teams Rapid Transit Operator Relationship Specialty Start Date End Date Yazan Chaves MD PCP - General 05/31/08 documented as of this encounter
--- OUTSIDE RECORDS SUMMARY | 2024-08-24 00:09 | XMS_ITS | Encounter Summary ---
Author Organization [facility] Address [address] [place] [address] Care Team Providers Care Budget Examiner Name Role Phone Yazan Chaves MD Primary Care Provider [phone] Encounter Details Date Type Department Care Team (Late st Contact Info) Description 01/26/2003 Outpatient Historical [facility] Medicine [facility] [address] [facility] 100 [place] [address] Yazan Chaevs MD [address] [facility] 210 [place] [address] Social History Tobacco Use Types Packs/Day Years Used Date Smoking Tobacco: Never Assessed Sex and Gender Information Value Date Recorded Sex Assigned at Not on file Legal Sex Male 5:21 AM SUPERVISOR IRRIGATION Gender Identity Not on file Sexual Orientation Not on file documented as of this encounter Plan of Treatment Not on file documented as of this encounter Visit Diagnoses Not on filedocumented in this encounter Care Teams Budget Examiner Relationship Specialty Start Date End Date Yazan Chaves MD PCP - General 05/31/08 documented as of this encounter
--- OUTSIDE RECORDS SUMMARY | 2024-08-24 00:09 | XMS_ITS | Encounter Summary ---
Author Organization [facility] Facility Care Team Providers Care Ceo Ziff Davis Name Role Phone Elizabeth Stout DO Primary Care Provider [phone] Encounter Details Date Type Department Care Team (Latest Contact Info) Description 09/02/2017 Orders Only [facility] CLINCONV ProviderHarris MD [address] [place] [address] Social History Tobacco Use Types Packs/Day Years Used Date Smoking Tobacco: Never Sex and Gender Information Value Date Recorded Sex Assigned at Not on file Legal Sex Male 11:42 AM INTEGRITY CONSULTANT Gender Identity Not on file Sexual Orientation Not on file documented as of this encounter Plan of Treatment Not on file documented as of this encounter Procedures Procedure Name Priority Date/Time Associated Diagnosis Comments SCAN - LABS 09/10/2017 12:00 AM CDT documented in this encounter Results * SCAN - LABS (09/10/2017 12:00 AM CDT) Narrative 09/10/2017 12:00 AM CDT Ordered by an unspecified provider. Historical Provider Final Res ult documented in this encounter Visit Diagnoses Not on filedocumented in this encounter Care Teams Ceo Ziff Davis Relationship Specialty Start Date End Date Elizabeth Stout DO PCP - General Internal Medicine 05/15/18 documented as of this encounter
--- OUTSIDE RECORDS SUMMARY | 2024-08-24 00:09 | XMS_ITS | Referral Summary ---
Author Organization [facility] Address [address] [place] [address] Care Team Providers Care Scratcher Name Role Phone Elizabeth Stout Primary Care Provider [phone] Allergies No known active allergies Medications amLODIPine [...] diabetes mellitus with hyperglycemia 03/26 Hyperlipidemia 04/13/2015 Social History Tobacco Use Types Packs/Day Years Used Date Smoking Tobacco: Never Personal Safety Answer Date Recorded Getting School Help Needed Not on file 04/22 Sex and Gender Information Value Date Recorded Sex Assigned at Not on file Legal Sex Male 11: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
--- OUTSIDE RECORDS SUMMARY | 2024-08-24 00:09 | XMS_ITS | Encounter Summary ---
Author Organization [facility] Address [address] [place] [address] Care Team Providers Care Outside Sales Engineer Name Role Phone Yazan Chaves MD Primary Care Provider [phone] Encounter Details Date Type Department Care Team (Late st Contact Info) Description 08/14/2005 Outpatient Historical [facility] Medicine [facility] [address] [facility] 100 [place] [address] Yazan Chaves MD [address] [place] [address] [address] [place] [address] Social History Tobacco Use Types Packs/Day Years Used Date Smoking Tobacco: Never Assessed Sex and Gender Information Value Date Recorded Sex Assigned at Not on file Legal Sex Male 5:21 AM MONONITROTOLUENE OPERATOR Gender Identity Not on file Sexual Orientation Not on file documented as of this encounter Plan of Treatment Not on file documented as of this encounter Visit Diagnoses Not on filedocumented in this encounter Care Teams Outside Sales Engineer Relationship Specialty Start Date End Date Yazan Chaves MD PCP - General 05/31/08 documented as of this encounter
--- OUTSIDE RECORDS SUMMARY | 2024-08-24 00:09 | XMS_ITS | Encounter Summary ---
Author Organization [facility] Address [address] [place] [address] Care Team Providers Care Meter Maker Name Role Phone Yazan Chaves MD Primary Care Provider [phone] Encounter Details Date Type Department Care Team (Late st Contact Info) Description 08/12/2004 Outpatient Historical [facility] Medicine [facility] [address] [facility] 100 [place] [address] Yazan Chaves MD [address] [place] [address] [address] [place] [address] Social History Tobacco Use Types Packs/Day Years Used Date Smoking Tobacco: Never Assessed Sex and Gender Information Value Date Recorded Sex Assigned at Not on file Legal Sex Male 5:[address] Gender Identity Not on file Sexual Orientation Not on file documented as of this encounter Plan of Treatment Not on file documented as of this encounter Visit Diagnoses Not on filedocumented in this encounter Care Teams Meter Maker Relationship Specialty Start Date End Date Yazan Chaves MD PCP - General 05/31/08 documented as of this encounter
--- OUTSIDE RECORDS SUMMARY | 2024-08-24 00:09 | XMS_ITS | Encounter Summary ---
Author Organization [facility] Address [address] [place] [address] Care Team Providers Care Extract Puller Name Role Phone Yazan Chaves MD Primary Care Provider [phone] Encounter Details Date Type Department Care Team (Late st Contact Info) Description 03/15/1999 Outpatient Historical [facility] Medicine [facility] [address] [facility] 100 [place] [address] Yazan Chaves MD [address] [place] [address] [address] [place] [address] Social History Tobacco Use Types Packs/Day Years Used Date Smoking Tobacco: Never Assessed Sex and Gender Information Value Date Recorded Sex Assigned at Not on file Legal Sex Male 5:21 AM COMMUNITY HEALTH AGENT Gender Identity Not on file Sexual Orientation Not on file documented as of this encounter Plan of Treatment Not on file documented as of this encounter Visit Diagnoses Not on filedocumented in this encounter Care Teams Extract Puller Relationship Specialty Start Date End Date Yazan Chaves MD PCP - General 05/31/08 documented as of this encounter
--- OUTSIDE RECORDS SUMMARY | 2024-08-24 00:09 | XMS_ITS | Encounter Summary ---
Author Organization [facility] Address [address] [place] [address] Care Team Providers Care Certified Medical Technician Name Role Phone Yazan Chaves MD Primary Care Provider [phone] Encounter Details Date Type Department Care Team (Late st Contact Info) Description 07/05/2004 Outpatient Historical [facility] Medicine 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
--- OUTSIDE RECORDS SUMMARY | 2024-08-24 00:09 | XMS_ITS | Encounter Summary ---
Author Organization [facility] Address [address] [place] [address] Care Team Providers Care Wash Plant Operator Name Role Phone Yazan Chaves MD Primary Care Provider [phone] Encounter Details Date Type Department Care Team (Late st Contact Info) Description 02/08/1999 Outpatient Historical [facility] Medicine [facility] [address] [facility] 100 [place] [address] Yazan Chaves MD [address] [facility] [address] [place] [address] Social History Tobacco Use Types Packs/Day Years Used Date Smoking Tobacco: Never Assessed Sex and Gender Information Value Date Recorded Sex Assigned at Not on file Legal Sex Male 5:21 AM MANAGER OF LOSS PREVENTION OPERATIONS Gender Identity Not on file Sexual Orientation Not on file documented as of this encounter Plan of Treatment Not on file documented as of this encounter Visit Diagnoses Not on filedocumented in this encounter Care Teams Wash Plant Operator Relationship Specialty Start Date End Date Yazan Chaves MD PCP - General 05/31/08 documented as of this encounter
--- OUTSIDE RECORDS SUMMARY | 2024-08-24 00:09 | XMS_ITS | Encounter Summary ---
Author Organization [facility] Address [address] [place] [address] Care Team Providers Care Trauma Counsellor Name Role Phone Yazan Chaves MD Primary Care Provider [phone] Encounter Details Date Type Department Care Team (Late st Contact Info) Description 07/22/2001 Outpatient Historical [facility] Medicine [facility] [address] [facility] 100 [place] [address] Yazan Chaves MD [address] [facility] 210 [place] [address] Social History Tobacco Use Types Packs/Day Years Used Date Smoking Tobacco: Never Assessed Sex and Gender Information Value Date Recorded Sex Assigned at Not on file Legal Sex Male 5:21 AM SOCK LINING STITCHER Gender Identity Not on file Sexual Orientation Not on file documented as of this encounter Plan of Treatment Not on file documented as of this encounter Visit Diagnoses Not on filedocumented in this encounter Care Teams Trauma Counsellor Relationship Specialty Start Date End Date Yazan Chaves MD PCP - General 05/31/08 documented as of this encounter
--- OUTSIDE RECORDS SUMMARY | 2024-08-24 00:10 | XMS_ITS | Encounter Summary ---
Author Organization [facility] Address [address] [place] [address] Care Team Providers Care On Car Supervisor Name Role Phone Yazan Chaves MD Primary Care Provider [phone] Encounter Details Date Type Department Care Team (Late st Contact Info) Description 12/14/2006 Outpatient Historical [facility] Medicine - [facility] [address] [facility] 100 [place] [address] Yazan Chaves MD [address] [facility] [address] [place] [address] Social History Tobacco Use Types Packs/Day Years Used Date Smoking Tobacco: Never Assessed Sex and Gender Information Value Date Recorded Sex Assigned at Not on file Legal Sex Male 5:21 AM MANAGEMENT TECH Gender Identity Not on file Sexual Orientation Not on file documented as of this encounter Plan of Treatment Not on file documented as of this encounter Visit Diagnoses Not on filedocumented in this encounter Care Teams On Car Supervisor Relationship Specialty Start Date End Date Yazan Chaves MD PCP - General 05/31/08 documented as of this encounter
--- OUTSIDE RECORDS SUMMARY | 2024-08-24 00:10 | XMS_ITS | Encounter Summary ---
Author Organization [facility] Address [address] [place] [address] Care Team Providers Care Conservation Engineer Name Role Phone Yazan Chaves MD Primary Care Provider [phone] Encounter Details Date Type Department Care Team (Late st Contact Info) Description 04/19/2007 Outpatient Historical [facility] Medicine - [place] [address] [facility] [address] [place] [address] Yazan Chaves MD [address] [facility] [address] [place] [address] Social History Tobacco Use Types Packs/Day Years Used Date Smoking Tobacco: Never Assessed Sex and Gender Information Value Date Recorded Sex Assigned at Not on file Legal Sex Male 5:21 AM CAR COUPLER Gender Identity Not on file Sexual Orientation Not on file documented as of this encounter Plan of Treatment Not on file documented as of this encounter Procedures Procedure Name Priority Date/Time Associated Diagnosis Comments PROTEIN, 24 HR URINE W/ CREATININE Routine 04/20/2007 11:00 AM CAR COUPLER documented in this encounter Results * PROTEIN, 24 HR URINE W/ CREATININE (04/20/2007 11:00 AM CAR COUPLER) Creatinine, Urine 212 20 - 370 mg/dL [facility] PROTEIN TOTAL, URINE 94 22 - 128 mg/g creat [facility] PROTEIN TOTAL, URINE 20 5 - 25 mg/dL [facility] Comment: Test Performed at: [address] [id number] MAGDALENO MOCTEZUMA MD Narrative [facility] - 04/20/2007 11:00 AM CAR COUPLER Ordered by YAZAN CHAVES us Historical Provider URINE ORDERABLES Final Resul t [facility] [id number] [place] [id number] documented in this encounter Visit Diagnoses Not on filedocumented in this encounter Care Teams Conservation Engineer Relationship Specialty Start Date End Date Yazan Chaves MD PCP - General 05/31/08 documented as of this encounter
--- OUTSIDE RECORDS SUMMARY | 2024-08-24 00:10 | XMS_ITS | Encounter Summary ---
Author Organization [facility] Address [address] [place] [address] Care Team Providers Care District Wire Chief Name Role Phone Yazan Chaves MD Primary Care Provider [phone] Encounter Details Date Type Department Care Team (Late st Contact Info) Description 02/01/2007 Outpatient Historical [facility] Medicine - [facility] [address] [facility] [address] [place] [address] Yazan Chaves MD [address] [facility] [address] [place] [address] Social History Tobacco Use Types Packs/Day Years Used Date Smoking Tobacco: Never Assessed Sex and Gender Information Value Date Recorded Sex Assigned at Not on file Legal Sex Male 5:21 AM ANIMAL COP Gender Identity Not on file Sexual Orientation Not on file documented as of this encounter Plan of Treatment Not on file documented as of this encounter Visit Diagnoses Not on filedocumented in this encounter Care Teams District Wire Chief Relationship Specialty Start Date End Date Yazan Chaves MD PCP - General 05/31/08 documented as of this encounter
--- OUTSIDE RECORDS SUMMARY | 2024-08-24 00:10 | XMS_ITS | Encounter Summary ---
Author Organization [facility] Address [address] [place] [address] Care Team Providers Care Spare Hand Name Role Phone Yazan Chaves MD Primary Care Provider [phone] Encounter Details Date Type Department Care Team (Late st Contact Info) Description 07/24/2006 Outpatient Historical [facility] Medicine [facility] [address] [facility] [address] [place] [address] Yazna Chaves MD [address] [facility] [address] [place] [address] Social History Tobacco Use Types Packs/Day Years Used Date Smoking Tobacco: Never Assessed Sex and Gender Information Value Date Recorded Sex Assigned at Not on file 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
--- OUTSIDE RECORDS SUMMARY | 2024-08-24 00:10 | XMS_ITS | Encounter Summary ---
Author Organization [facility] Address [address] [place] [address] Care Team Providers Care Security Shift Supervisor Name Role Phone Yazan Chaves MD Primary Care Provider [phone] Encounter Details Date Type Department Care Team (Late st Contact Info) Description 04/19/2007 Outpatient Historical [facility] Medicine [facility] [address] [facility] [address] [place] [address] Yazan Chaves MD [address] [place] [address] [address] [place] [address] Social History Tobacco Use Types Packs/Day Years Used Date Smoking Tobacco: Never Assessed Sex and Gender Information Value Date Recorded Sex Assigned at Not on file 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
--- OUTSIDE RECORDS SUMMARY | 2024-08-24 00:10 | XMS_ITS | Encounter Summary ---
Author Organization [facility] Address [address] [place] [address] Care Team Providers Care Baked Goods Stock Clerk Name Role Phone Yazan Chaves MD Primary Care Provider [phone] Encounter Details Date Type Department Care Team (Late st Contact Info) Description 06/05/2006 Outpatient Historical [facility] Medicine - 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
--- OUTSIDE RECORDS SUMMARY | 2024-08-24 00:10 | XMS_ITS | Encounter Summary ---
Author Organization [facility] Address [address] [place] [address] Care Team Providers Care Cell Reliner Name Role Phone Yazan Chaves MD Primary Care Provider [phone] Encounter Details Date Type Department Care Team (Late st Contact Info) Description 10/30/2006 Outpatient Historical [facility] Medicine [facility] [address] [facility] [address] [place] [address] Yazan Chaves MD [address] 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
--- OUTSIDE RECORDS SUMMARY | 2024-08-24 00:10 | XMS_ITS | Encounter Summary ---
Author Organization [facility] Address [address] [place] [address] Care Team Providers Care Building Equipment Inspector Name Role Phone Yazan Chaves MD Primary Care Provider [phone] Encounter Details Date Type Department Care Team (Late st Contact Info) Description 02/01/2007 Outpatient Historical [facility] Medicine - [facility] [address] [facility] [address] [place] [address] Yazan Chaves MD [address] [facility] [address] [place] [address] Social History Tobacco Use Types Packs/Day Years Used Date Smoking Tobacco: Never Assessed Sex and Gender Information Value Date Recorded Sex Assigned at Not on file 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
[2024-08-24] MEDS: LACTATED RINGERS 1,000 ML 30 ML IV CONT ×2 (08:30→12:16)
[2024-08-24] MEDS: GENTAMICIN SULFATE INJ 320 MG in DEXTROSE 5% 100 ML 100 MG IVPB (08:30)
[2024-08-24] MEDS: VANCOMYCIN 1,000 MG/NS 250 ML 1,000 MG/250 ML BAG 250 MG IVPB ×2 (08:30→20:36)
--- NOTE | 2024-08-24 08:38 | WPDANESEPPF ---
Anes - Initial Pre Proc Eval Procedure: Operation Date: 08/24/24 11:30 Proposed Procedures p Advanced Male Sling with Cystoscopy - Jorge Suggs MD Date/Time: 08/24/24 08:38 Surgeon: Jorge Suggs MD Pre Op Diagnosis: Stress Incont Patient Data Age: 68 Gender: M Height: 1.7 m Weight: 64 kg Allergies Allergy/AdvReac Type Severity Reaction Status Date / Time No Known Allergies Allergy Verified 08/16/24 10:57 Home Medications ?Medication ?Instructions ?Recorded ?Confirmed ?Type amlodipine 5 mg tablet 5 mg PO QAM 08/16/24 08/16/24 History aspirin 81 mg tablet,delayed 81 mg PO DAILY 08/16/24 08/16/24 History release (Adult Low Dose Aspirin) atorvastatin 40 mg tablet 40 mg PO QAM 08/16/24 08/16/24 History empagliflozin 25 mg tablet 25 mg PO QAM 08/16/24 08/16/24 History (Jardiance) latanoprost 0.005 % eye drops 1 drp EACH EYE QPM 08/16/24 08/16/24 History lisinopril 40 mg tablet 40 mg PO QAM 08/16/24 08/16/24 History metformin 1,000 mg tablet 1,000 mg PO BID 08/16/24 08/16/24 History metoprolol tartrate 25 mg tablet 25 mg PO Q12H 08/16/24 08/16/24 History tirzepatide 5 mg/0.5 mL 5 mg subcut WEEKLY 08/16/24 08/16/24 History subcutaneous pen injector (Mounjaro) Patient hx anesthesia problems: none Family hx anesthesia problems: none Results Review: All pre-operative results and documents have been reviewed as part of the pre-operative evaluation. [facility] Past Medical History Medical History (Updated 08/24/24 @ 08:39 by Evan Aguilar MD) Diabetes HTN (hypertension) Social History Social History Smoking status: Never smoker Living arrangements: alone Spiritual care concerns: No Anes - Eval Final PreProcedure Day of Procedure 08/24/24 08:38 Patient weight: normal Heart: regular rate and rhythm Lungs: clear to auscultation Neurological: alert and oriented Last oral intake: >/= 8 hours ASA classification: III Emergent: no Anesthetic plan: proceed Anesthesia type and monitoring: general LMA and standard monitoring Results Review: All pre-operative results and documents have been reviewed as part of the pre-operative evaluation. Informed Consent: The patient's anesthetic plan and its attendant risks and benefits were discussed with the patient/family/POA. Questions were solicited and answers provided to the satisfaction of the patient/family/POA.
--- NOTE | 2024-08-24 08:40 | WPDHPUPDATE1 ---
History and Physical Update Update Date/Time: 08/24/24 08:40 History and Physical has been reviewed, including an updated exam of the patient. There are NO changes in the patient's condition. Risks, benefits, and alternatives have been discussed and questions answered. Patient agrees to proceed with procedure.
[2024-08-24] MEDS: fentaNYL CITRATE INJ (*CRX) 100 MCG/2 ML VIAL 25 MCG IV PUSH ×2 (11:55→12:40)
--- NOTE | 2024-08-24 12:01 | W.PM.PROC2 ---
Procedure Note - Detailed Date of Procedure 08/24/24 Pre-op Diagnosis Stress Incontinence Post-op Diagnosis Same Procedure Performed Placement of AMS Advance male sling. Cystoscopy. Surgeon Jorge Suggs MD Anesthesia General Description of Procedure Informed consent was obtained. The patient was taken to the operating room and given preoperative IV antibiotics with vancomycin and gentamicin, the patient has received oral Levaquin for the past 48 hours at home, and has done a 3-day Hibiclens wash. The patient was induced with general anesthesia. We then shaved, and the patient received a Betadine scrub followed by ChloraPrep. The patient was in the dorsal lithotomy position. Drapes were placed and then again prepped with Chloraprep. A 16-Tanzanian Dupree catheter was inserted. We made a 3 cm incision in the perineum. We then dissected down and identified the bulbar spongiosis muscle. The muscle layer was opened. We identified the urethra and it was mobilized laterally as well as proximally. We did take down the central tendon for approximately 2 cm. This allowed mobilization of the urethra. We then irrigated copiously.We secured the mesh to the spongiosum with 3-0 Vicryl suturewith the proximal end at point of dissection of central tendon.We used the Advance trocar passers to place the sling through the obturator foramen. There was good positioning noted. The catheter was removed. We then performed flexible cystoscopy. We inspected the urethra in the bladder. There was no injury from sling placement. We then tightened the sling. We did note that the sling did compress nicely.A 12-F Dupree catheter was inserted.We then irrigated copiously. We then closed bulbar spongiosis with a 2-0 Vicryl suture. We then tunneled the arms of the sling into the perineal incision. We performed multiple layers of closure with 2-0 and 3-0 Vicryl suture and the skin was closed with a 3-0 Vicryl horizontal mattress. We reapproximated the skin at the stab incisions for placement of the trocars with 4-0 Monocryl. Surgival glue was applied to all incisions. We placed a scrotal supporter. The catheter was left to gravity. The patient was then awakened and taken to the recovery room in stable condition. Complications No immediate complications Condition Stable Disposition PACU
--- NOTE | 2024-08-24 13:31 | ADMGEN ---
This patient, Calvin Mahajan, was admitted to [address] [place] [address] Room 312-01. Patient/family oriented to hospital policies and general routines including ID bracelet, bed and alarms, visiting hours, pain management, procedures, bathroom and other care routines, personal items, smoking policy, room service/diet, and visiting hours. Information on how to activate the Rapid Response Team has been discussed. Patient/Family are encouraged to report perceived risks to care and to ask questions if they do not understand what they are told or what they should do.
[2024-08-24] MEDS: HYDROcodone/acetaminophen (*CRX) 5-325 MG TABLET 1 TAB PO ×2 (14:37→18:30)
[2024-08-24] MEDS: DOCUSATE SODIUM 100 MG CAPSULE PO (16:40)
[2024-08-24] MEDS: LATANOPROST 0.005% OP SOLN 2.5 ML BTL 1 DROP EACH EYE (16:40)
[2024-08-24] MEDS: MORPHINE SULFATE (*CRX) 2 MG/ML INJ IV PUSH (20:36)
[2024-08-24] MEDS: METOPROLOL TARTRATE 25 MG TABLET PO (20:38)
[2024-08-25 05:50] VITALS: BP 173/83; PULSE 62; RESP 20; TEMP 37.2; O2SAT 100
[2024-08-25 08:00] VITALS: BP 184/92; PULSE 62; PULSE 71; RESP 16; RESP 20; TEMP 36.3; O2SAT 100; O2SAT 98
[2024-08-25] MEDS: ATORVASTATIN 40 MG TABLET PO (09:39)
[2024-08-25] MEDS: EMPAGLIFLOZIN 25 MG TABLET PO (09:39)
[2024-08-25] MEDS: METOPROLOL TARTRATE 25 MG TABLET PO (09:40)
[2024-08-25] MEDS: ENOXAPARIN 30 MG/0.3 ML SYRINGE SUB-Q (09:40)
[2024-08-25] MEDS: VANCOMYCIN 1,000 MG/NS 250 ML 1,000 MG/250 ML BAG 250 MG IVPB (09:42)
[2024-08-25] MEDS: NACL 0.9% IRRIGATION POUR BOTTLE 500 ML (09:42)
[2024-08-25] MEDS: HYDROcodone/acetaminophen (*CRX) 5-325 MG TABLET 1 TAB PO (09:56)
[2024-08-25 12:00] VITALS: BP 164/92; PULSE 62; RESP 16; TEMP 36.1; O2SAT 100
[2024-08-25] MEDS: GENTAMICIN 80MG/SOD CHL 50 ML 80 MG/50 ML BAG 100 MG IVPB (12:39)
--- NOTE | 2024-08-25 12:53 | PM.DS ---
DS: Admitting Diagnosis Discharge Date 08/25/2024 Admitting Diagnosis Stress Incontinence DS: Discharge Diagnosis Discharge Diagnosis Plan Stress Incontinence Post-op: Placement of AMS Advance male sling. Cystoscopy. Keep follow up appointment. DS: Summary Hospital Course Reason for hospitalization: Placement of AMS Advance male sling. Cystoscopy with Dr. Suggs. Hospital Course: Patient is POD 1 Placement of AMS Advance male sling. Cystoscopy with Dr. Suggs. He is doing well and passed his voiding trial. Patient feels good and is ready for discharge. Status at Discharge Functional status at discharge: independent ambulation Overall status at discharge: patient is back to baseline Time Spent with Patient Time attestation: Total time spent providing and/or coordinating discharge services: Exam Const: General: comfortable and no acute distress HENMT: Face/Nose/Sinus: Normal nares present Mouth: Yes moist mucous membranes Eyes: General: appearance normal, both eyes and all related structures Neck: Neck: supple Resp: Effort & Inspection: normal respiratory effort Cardio: Rate: regular rate GI: GI Palp: Yes Soft to palpation : Male General Exam: Yes normal external exam Skin: General skin exam: normal color Neuro: General: gait normal Extrem: General: normal to inspection Psych: Mental Status: mental status grossly normal DS: Data Data Completed and Pending Labs on day of discharge: Labs from last 24 hours 08/25/24 08/25/24 08/24/24 11:50 07:57 20:11 POC Capillary Glucose 193 H 207 H 267 H Discharge Plan Discharge Patient Disposition: Home Discharge Instructions: Pain medications and antibiotics have already been sent to your pharmacy. Keep follow up appointment. Handout for further instructions post op given to and reviewed with patient. Patient Language: Citizen Of [place] Stand Alone Forms: General Discharge Instructions Discharge Medications: Continued atorvastatin 40 mg tablet 40 mg PO QAM amlodipine 5 mg tablet 5 mg PO QAM Jardiance 25 mg tablet 25 mg PO QAM latanoprost 0.005 % drops 1 drp EACH EYE QPM lisinopril 40 mg tablet 40 mg PO QAM metformin 1,000 mg tablet 1,000 mg PO BID metoprolol tartrate 25 mg tablet 25 mg PO Q12H Held Mounjaro 5 mg/0.5 mL pen injector 5 mg SUBCUT WEEKLY Hold Instructions: Resume on 08/31/24. Patient Comments: MONDAYS aspirin [Adult Low Dose Aspirin] 81 mg tablet,delayed release (DR/EC) 81 mg PO DAILY Hold Instructions: Resume on 08/31/24.
== END 2024-08-25 13:29 | disposition home or self-care (01) ==
LOC: ANHSURGERY 08:04 → ANH3MEDSUR 13:29
PROVIDERS: PCP Internal Medicine; Visit Provider Urology
PROC: (CPT 53440; principal; 2024-08-24 11:30)
DX: N39.3 Stress incontinence (female) (male) (principal); E11.9 Type 2 diabetes mellitus without complications; I10 Essential (primary) hypertension; Z79.85 Long-term (current) use of injectable non-insulin antidiabetic drugs; Z79.84 Long term (current) use of oral hypoglycemic drugs
CPT/HCPCS: 53440; 82948; A9270; C1771; J0690; J1100; J1580; J1650; J2003; J2270; J2704; J3010; J3373; J7030; J7120